=== PATIENT | male | born 1945 | race Caucasian/White ===

== ENCOUNTER → 2018-05-24 | Outpatient (CLI) | payer MEDICARE ==
[2018-05-24 09:42] LABS: HEMATOCRIT 43.2 % (42.0-52.0); HEMOGLOBIN 14.3 gm/dL (14.0-18.0); MCH 30.3 pg (26.0-34.0); MCHC 33.1 g/dL (28.0-37.0); MCV 91.6 fL (80.0-100.0); MPV 9.3 fl. (7.2-11.1); RBC 4.72 mil/uL (4.50-6.00); RDW-CV 15.6 % (10.5-14.5); WBC 9.4 thou/uL (4.0-11.0)
[2018-05-24 10:13] LABS: ALBUMIN 3.8 g/dL (3.4-5.0); ALKALINE PHOSPHATASE 93 U/L (46-116); ANION GAP 7 mmol/L (7-16); BUN 18 mg/dL (7-18); CALCIUM 9.3 mg/dL (8.5-10.1); CHLORIDE 98 mmol/L (98-107); CHOLESTEROL 174 mg/dL (<200); CO2 29 mmol/L (21-32); GLUCOSE 117 mg/dL (70-99); HDL CHOLESTEROL 73 mg/dL (>40); LDL CHOLESTEROL 95 mg/dL (<100); POTASSIUM 4.4 mmol/L (3.5-5.1); SGOT 19 U/L (15-37); SGPT 22 U/L (30-65); SODIUM 134 mmol/L (136-145); TC:HDL 2.4 Ratio (Not establshd); TOTAL BILIRUBIN 0.6 mg/dL (<0.1-1.0); TOTAL PROTEIN 7.8 g/dL (6.4-8.2); TRIGLYCERIDE 30 mg/dL (<150); VLDL 6 mg/dL (<40)
[2018-05-24 10:14] LABS: SERUM ASSESSMENT Clear
[2018-05-25 02:06] LABS: GLYCOHEMOGLOBIN (HGB A1C) 6.3 % (4.8-5.6)
== END ==
LOC: M.LAB 08:57
PROVIDERS: General Practice
DX: E11.9 Type 2 diabetes mellitus without complications (principal); E78.5 Hyperlipidemia, unspecified; I10 Essential (primary) hypertension; R97.20 Elevated prostate specific antigen [PSA]; E55.9 Vitamin D deficiency, unspecified